=== PATIENT | female | born 1955 | race Caucasian/White ===

== ENCOUNTER → 2022-04-04 | Outpatient (CLI) | payer OTHER, SELFPAY ==
--- NOTE | 2022-04-04 14:41 | CT_ITS ---
EXAM: CT RIGHT UPPER EXTREMITY WITHOUT INTRAVENOUS CONTRAST, SHOULDER CLINICAL INDICATION: PAIN TECHNIQUE: Helically acquired images were obtained of the right shoulder without intravenous contrast. 2-D reformats were performed by the technologist. CTDIvol = ( 29.77 ) mGy, DLP = ( 773.09 ) mGycm This CT exam was performed using one or more of the following dose reduction techniques: automated exposure control, adjustment of the mA and/or kV according to patient size, and/or use of iterative reconstruction technique. This report was created using [employer] technology. COMPARISON: None. FINDINGS: BONES/JOINTS: Lateral downsloping acromion with narrowing of the subacromial space peripherally. At least moderate osteoarthrosis of the glenohumeral joint. No acute fracture or malalignment. No sclerotic or destructive changes. SOFT TISSUES: Unremarkable. No soft tissue swelling or gas. No radiopaque foreign body. LUNG APICES: Scarring or discoid atelectasis at the right lower lobe. CT/Extremity Upper without Contra IMPRESSION: At least moderate osteoarthrosis of the glenohumeral joint. Lateral downsloping acromion with narrowing of the subacromial space peripherally; consider MRI to better evaluate for potentially associated rotator cuff pathology. Electronically Signed: Shoaib Graves MD at 23:10 EST ,
== END | disposition home or self-care (01) ==
LOC: CT 14:41
PROVIDERS: PCP Nurse Practitioner Family; Referring Provider Specialist; Visit Provider Specialist
DX: M19.011 Primary osteoarthritis, right shoulder (principal); M25.511 Pain in right shoulder
CPT/HCPCS: 73200